=== PATIENT | female | born 1990 | race Caucasian/White ===

== ENCOUNTER 2018-11-11 13:15 | Inpatient (IN) | payer OTHER ==
[~2018-11-11] VITALS: Ht 160 cm; Wt 73.6 kg
[2018-11-12] VITALS (47 sets, daily range): BP systolic 98–129; BP diastolic 50–77; PULSE 60–114; TEMP 98.1–98.4
[2018-11-12 11:12] LABS: BASO % 0.3 % (0.0-2.0); EOS # 0.1 (0.0-0.7); GRAN # 9.4 (1.4-6.5); GRAN % 69.1 % (42.2-75.2); HEMATOCRIT 33.5 % (37.0-47.0); HEMOGLOBIN 11.4 g/dl (12.5-16.0); LYMPH # 2.9 (1.2-3.4); LYMPH % 21.1 % (20.0-51.0); MEAN CELL VOLUME 90 fl (80.0-100.0); MEAN CORPUSCULAR HEMOGLOBIN 31 pg (27.0-31.0); MEAN CORPUSCULAR HGB CONC 34 g/dl (33.0-37.0); MEAN PLATELET VOLUME 9.5 fl (7.4-10.4); MONO % 7.3 % (1.7-9.3); PLATELET COUNT 288 K/mm3 (130-400); RED BLOOD COUNT 3.73 M/mm3 (4.10-5.30); REDCELL DISTRIBUTION WIDTH-CV 13.7 % (11.5-14.5)
[2018-11-12] MEDS ORDERED: ZOFRAN 4MG T4 MG/TAB PO (11:34)
[2018-11-13] VITALS (24 sets, daily range): BP systolic 89–156; BP diastolic 52–81; PULSE 66–134; TEMP 98–99.4
[2018-11-14 01:07] VITALS: BP 108/67; PULSE 99; TEMP 98.1
[2018-11-14 07:00] VITALS: BP 97/58; PULSE 78; TEMP 97.9
[2018-11-14 07:42] LABS: HEMOGLOBIN 10.2 g/dl (12.5-16.0)
[2018-11-14 07:51] LABS: HEMATOCRIT 30.5 % (37.0-47.0)
[2018-11-14] MEDS ORDERED: IBU600 MG PO (09:59)
[2018-11-14] MEDS ORDERED: TYLENOL 325MG325 MG PO (09:59)
== END 2018-11-14 15:10 | disposition home or self-care (01) | DRG 807 ==
LOC: LDR 13:15 → OB 11-12 10:31 → LDR 11-12 17:04 → OB 11-13 07:15
PROVIDERS: ADMIT Obstetrics & Gynecology
PROC: 10D07Z6 Extraction of Products of Conception, Vacuum, Via Natural or Artificial Opening (ICD-10-PCS; principal; 2018-11-13)
PROC: 0KQM0ZZ Repair Perineum Muscle, Open Approach (ICD-10-PCS; 2018-11-13)
PROC: 10907ZC Drainage of Amniotic Fluid, Therapeutic from Products of Conception, Via Natural or Artificial Opening (ICD-10-PCS; 2018-11-13)
PROC: 3E033VJ Introduction of Other Hormone into Peripheral Vein, Percutaneous Approach (ICD-10-PCS; 2018-11-13)
DX: O99.02 Anemia complicating childbirth (principal); Z37.0 Single live birth; O99.62 Diseases of the digestive system complicating childbirth; O70.1 Second degree perineal laceration during delivery; D64.9 Anemia, unspecified; O76 Abnormality in fetal heart rate and rhythm complicating labor and delivery; Z3A.40 40 weeks gestation of pregnancy
CPT/HCPCS: J2405; J2590; J7120

== ENCOUNTER → 2019-11-03 | Outpatient (CLI) | payer OTHER ==
[~2019-11-03] MED LIST: IBU600 MG PO; TYLENOL 325MG325 MG PO; ZOFRAN 4MG T4 MG/TAB PO
== END ==
LOC: ZCOL.LAB 14:45
DX: Z20.828 Contact with and (suspected) exposure to other viral communicable diseases (principal)